=== PATIENT | female | born 1990 | race African-American/Black ===

== ENCOUNTER 2017-04-12 16:59 | Emergency (ER) | payer OTHER ==
[~2017-04-12] VITALS: Ht 167.6 cm; Wt 53.0 kg
[~2017-04-12 16:59] MED LIST: AUGM875T PO
[2017-04-12 17:12] VITALS: BP 109/70; PULSE 81; RESP 14; TEMP 98.7; O2SAT 97
[2017-04-12] MEDS ORDERED: ACETAMINOPHEN/HYDROcodone 325 MG/5 MG TAB PO ONE (17:45)
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
[2017-04-12] MEDS ORDERED: CYCL1TAB29 PO (20:15)
[2017-04-12] MEDS ORDERED: IBUP-232 PO (20:15)
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
[2017-04-12 20:47] VITALS: BP 101/67
== END 2017-04-12 20:49 | disposition home or self-care (01) ==
LOC: NEPD 16:59
DX: S00.81XA Abrasion of other part of head, initial encounter (principal); M79.605 Pain in left leg; S50.312A Abrasion of left elbow, initial encounter; S70.312A Abrasion, left thigh, initial encounter; V47.6XXA Car passenger injured in collision with fixed or stationary object in traffic accident, initial encounter; Y92.410 Unspecified street and highway as the place of occurrence of the external cause
CPT/HCPCS: 70450; 71020; 72125; 72170; 73080; 73564; 84703; 99285

== ENCOUNTER 2017-09-11 16:38 | Emergency (ER) | payer OTHER ==
[~2017-09-11 16:38] MED LIST changes: -AUGM875T PO; +CYCL1TAB29 PO; +IBUP-232 PO
[2017-09-11 16:43] VITALS: BP 99/55; PULSE 89; RESP 14; TEMP 98.1; O2SAT 100
[2017-09-11 18:01] LABS: BACTERIA, URINE RARE /hpf; BLOOD, URINE NEG (NEG); COMMENT (UR) CULT NOT INDICATED; CULTURE IF INDICATED CULT NOT INDICATED; GLUCOSE,URINE NEG (NEG); KETONE, URINE NEG (NEG); MUCUS URINE FEW /lpf (OCC); NITRITE,URINE NEG (NEG); PH, URINE 6.5 (5.0-8.5); SQUAMOUS EPITHELIAL CELL URINE 4 /hpf (0-5); URINE COLOR YELLOW (YELLW/STRAW)
[2017-09-11 18:25] LABS: AUTOMATED NEUTROPHIL # 3.5 TH/MM3 (1.8-7.7); BASOPHIL % 0.3 % (0.0-2.0); EOSINOPHIL % 0.3 % (0.0-4.0); HEMATOCRIT 41.1 % (35.0-46.0); HEMO FLAGS DIFF FINAL; LYMPH % 43.9 % (9.0-44.0); MEAN CELL VOLUME 93.6 FL (80.0-100.0); MEAN CORPUSCULAR HEMOGLOBIN 31.4 PG (27.0-34.0); MEAN CORPUSCULAR HGB CONC 33.6 % (32.0-36.0); MONO % 4.3 % (0.0-8.0); NEUT % 51.2 % (16.0-70.0); PLATELET COUNT 209 TH/MM3 (150-450); RED BLOOD COUNT 4.39 MIL/MM3 (4.00-5.30); RED CELL DISTRIBUTION WIDTH 13.8 % (11.6-17.2); WHITE BLOOD COUNT 6.8 TH/MM3 (4.0-11.0)
[2017-09-11 18:38] LABS: BICARBONATE 27.7 MEQ/L (21.0-32.0); POTASSIUM 3.7 MEQ/L (3.5-5.1)
== END 2017-09-11 19:08 | disposition left against medical advice (07) ==
LOC: NED 16:38
DX: R10.30 Lower abdominal pain, unspecified (principal); Z53.21 Procedure and treatment not carried out due to patient leaving prior to being seen by health care provider
CPT/HCPCS: 80048; 81001; 84702; 84703; 85025; 86850; 86900; 86901; 99281

== ENCOUNTER 2017-09-21 18:58 | Emergency (ER) | payer OTHER ==
[~2017-09-21] VITALS: Ht 167.6 cm; Wt 55.0 kg
[~2017-09-21 18:58] MED LIST changes: +CYCL10TA PO; -CYCL1TAB29 PO
[2017-09-21 19:03] VITALS: BP 120/72; PULSE 72; RESP 14; TEMP 98.2; O2SAT 99
[2017-09-21] MEDS ORDERED: PREN29TA PO (20:16)
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
[2017-09-21 20:57] LABS: AUTOMATED NEUTROPHIL # 3.3 TH/MM3 (1.8-7.7); BASOPHIL % 0.7 % (0.0-2.0); EOSINOPHIL % 0.7 % (0.0-4.0); HEMO FLAGS DIFF FINAL; LYMPH % 44.2 % (9.0-44.0); LYMPHOCYTE # 2.9 TH/MM3 (1.0-4.8); MEAN CELL VOLUME 93.8 FL (80.0-100.0); MEAN CORPUSCULAR HGB CONC 33.1 % (32.0-36.0); MONO % 4.4 % (0.0-8.0); PLATELET COUNT 201 TH/MM3 (150-450); RED BLOOD COUNT 4.37 MIL/MM3 (4.00-5.30); RED CELL DISTRIBUTION WIDTH 13.5 % (11.6-17.2); WHITE BLOOD COUNT 6.7 TH/MM3 (4.0-11.0)
[2017-09-21 21:12] LABS: BLOOD, URINE MOD (NEG); COMMENT (UR) CULT NOT INDICATED; CULTURE IF INDICATED CULT NOT INDICATED; GLUCOSE,URINE NEG (NEG); KETONE, URINE NEG (NEG); MUCUS URINE FEW /lpf (OCC); NITRITE,URINE NEG (NEG); SQUAMOUS EPITHELIAL CELL URINE 1 /hpf (0-5); URINE COLOR YELLOW (YELLW/STRAW)
[2017-09-21 21:24] LABS: ANION GAP 7 MEQ/L (5-15); AST (GOT) 16 U/L (15-37); BICARBONATE 24.8 MEQ/L (21.0-32.0); BLOOD UREA NITROGEN 11 MG/DL (7-18); CHLORIDE 106 MEQ/L (98-107); GLOMERULAR FILTRATION RATE 170 ML/MIN (>89); POTASSIUM 3.5 MEQ/L (3.5-5.1); SODIUM (NA) 138 MEQ/L (136-145)
[2017-09-21 21:25] LABS: ALT (GPT) 17 U/L (10-53)
[2017-09-21 21:54] LABS: ALKALINE PHOSPHATASE 58 U/L (45-117); TOTAL BILIRUBIN ADULT 0.4 MG/DL (0.2-1.0)
[2017-09-21 22:17] LABS: BETA HCG QUANT 18069 MIU/ML (0-5)
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
== END 2017-09-21 23:48 | disposition home or self-care (01) ==
LOC: NEPD 18:58
DX: O20.0 Threatened abortion (principal); Z3A.01 Less than 8 weeks gestation of pregnancy
CPT/HCPCS: 76700; 76817; 80053; 81001; 84702; 84703; 85025

== ENCOUNTER 2017-10-08 15:01 | Emergency (ER) | payer OTHER ==
[~2017-10-08] VITALS: Ht 167.6 cm; Wt 50.0 kg
[~2017-10-08 15:01] MED LIST changes: -CYCL10TA PO; -IBUP-232 PO; +PREN29TA PO
[2017-10-08 15:03] VITALS: BP 117/66; PULSE 69; RESP 16; TEMP 98; O2SAT 98
[2017-10-08] MEDS ORDERED: DOXY10TA PO (16:43)
--- NOTE | 2017-10-08 16:44 | PD ---
HPI Chief Complaint: Abdominal Pain Time Seen by Provider: 16:29 Travel History International Travel<30 days: No Contact w/Intl Traveler<30days: No Traveled to known affect area: No History of Present Illness HPI This is a 27-year-old female who presents to the emergency Department 8 weeks who has been having 9 days of nausea, queasiness, constant, moderate severity, not wanting to eat associated with loose stools. She says she has 4- 5 loose stools per day. She denies any fevers and denies any abdominal pain. She's had no vaginal bleeding. Normocytic with upper respiratory infections. She says she can't tell if this is infectious or if it's related to her . She's not been taking anything for nausea. She's not seen an OB/ MEDICAL LIBRARY ASSISTANT yet but does have an appointment scheduled. 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 PFSH Past Medical History Diabetes: No Diminished Hearing: No Immunizations Current: No Tetanus Vaccination: < 5 Years ?: LMP: 8 weeks : 4 Para: 3 Miscarriage: 0 : 0 Past Surgical History Section: Yes (3) Genitourinary Surgery: Yes ( in October) Gynecologic Surgery: Yes (3 C-SECTIONS) Social History Alcohol Use: No Tobacco Use: No Substance Use: No Allergies-Medications (Allergen,Severity, Reaction): Coded Allergies: No Known Allergies (Verified Adverse Reaction, Unknown, 10/08/17) Reported Meds & Prescriptions Reported Meds & Active Scripts Active Reported Plus Iron 29-1 mg ( Vit-Iron Carbonyl) 29 Mg Iron-1 Mg Tab 1 Tab PO DAILY Review of Systems Except as stated in HPI: all other systems reviewed are Neg Physical Exam Narrative GENERAL:Well appearing, no acute distress SKIN: Focused skin assessment warm and dry. HEAD: Atraumatic. Normocephalic. EYES: Pupils equal and round. No injection or drainage. ENT: Moist mucous membranes NECK: Trachea midline. CARDIOVASCULAR: Regular rate and rhythm. No murmur appreciated. RESPIRATORY: Clear to auscultation. Breath sounds equal bilaterally. GASTROINTESTINAL: Abdomen soft, non-tender, nondistended. MUSCULOSKELETAL: No obvious deformities. NEUROLOGICAL: Awake and alert. No obvious cranial nerve deficits. Moving all extremities. PSYCHIATRIC: Appropriate mood and affect; insight and judgment normal. Data Data Last Documented VS Vital Signs Date Time Temp Pulse Resp B/P (MAP) Pulse Ox O2 Delivery O2 Flow Rate FiO2 10/08/17 15:03 98.0 69 16 117/66 (83) 98 Room Air MDM Medical Decision Making Medical Screen Exam Complete: Yes Emergency Medical Condition: Yes Differential Diagnosis Hyperemesis gravidarum, nausea and , gastroenteritis Narrative Course This is a 27-year-old female who is 8 weeks who presents to the emergency department with nausea and loose stools. She is afebrile and very well-appearing. She has no abdominal pain. I doubt this is infectious in nature and I think it's just normal first trimester symptoms. I advised her to initiate Diclegis. I think she can return to work. We discussed eating small meals frequently. I think patient can be discharged and follow-up with her SLAT TWISTER as an outpatient. Diagnosis Primary Impression: Vomiting or nausea of Patient Instructions: General Instructions Additional Instructions: If you develop severe or worsening abdominal pain, fever>100.4, persistent vomiting or inability to eat or drink return to the emergency department immediately. Follow up with your SLAT TWISTER at your scheduled appointment. Eat small meals or snacks multiple times per day. Take Diclegis for nausea. Med/Other Pt SpecificInfo: Prescription(s) given Scripts Doxylamine-Pyridoxine (Diclegis) 10-10 Mg Tab 1 TAB PO DIRECTED, #20 Two tablets at bedtime on day 1 and 2; if symptoms persist, take 1 tablet in morning and 2 tablets at bedtime on day 3; if symptoms persist, may increase to 1 tablet in morning, 1 tablet mid-afternoon, and 2 tablets at bedtime on day 4 Prov: Vera Liu MD 10/08/17 Disposition: 01 DISCHARGE HOME Condition: Stable Vera Liu MD Oct 08, 2017 16:43
== END 2017-10-08 16:51 | disposition home or self-care (01) ==
LOC: NEPK 15:01
DX: O21.9 Vomiting of pregnancy, unspecified (principal); R11.0 Nausea; R19.7 Diarrhea, unspecified; Z3A.08 8 weeks gestation of pregnancy
CPT/HCPCS: 99283

== ENCOUNTER → 2017-11-08 | Outpatient (CLI) | payer OTHER ==
[~2017-11-08] MED LIST changes: +MACR100C2 PO
[2017-11-08 14:09] LABS: AUTOMATED NEUTROPHIL # 4.1 TH/MM3 (1.8-7.7); BASOPHIL % 0.2 % (0.0-2.0); EOSINOPHIL % 0.4 % (0.0-4.0); HEMOGLOBIN 12.3 GM/DL (11.6-15.3); LYMPH % 29.3 % (9.0-44.0); LYMPHOCYTE # 1.9 TH/MM3 (1.0-4.8); MEAN CELL VOLUME 93.4 FL (80.0-100.0); MEAN CORPUSCULAR HGB CONC 34.3 % (32.0-36.0); MEAN PLATELET VOLUME 8.5 FL (7.0-11.0); MONO % 4.8 % (0.0-8.0); MONOCYTE # 0.3 TH/MM3 (0-0.9); NEUT % 65.3 % (16.0-70.0); PLATELET COUNT 194 TH/MM3 (150-450); RED BLOOD COUNT 3.85 MIL/MM3 (4.00-5.30); RED CELL DISTRIBUTION WIDTH 13.4 % (11.6-17.2); WHITE BLOOD COUNT 6.3 TH/MM3 (4.0-11.0)
[2017-11-08 14:33] LABS: SICKLE CELL SCREEN NEG (NEG)
[2017-11-08 14:37] LABS: HEMOGLOBIN A1C 4.7 % (4.3-6.0)
[2017-11-09 12:02] LABS: HEPATITIS B SURFACE ANTIGEN NEGATIVE (NEGATIVE)
[2017-11-10 17:51] LABS: HIV 1/2 AG AB NON-REACTIVE (NONREACTIVE)
== END ==
LOC: CLAB 12:19
PROVIDERS: ATTEND Obstetrics & Gynecology
DX: Z11.59 Encounter for screening for other viral diseases (principal); Z13.89 Encounter for screening for other disorder; Z13.29 Encounter for screening for other suspected endocrine disorder; Z13.21 Encounter for screening for nutritional disorder; Z13.228 Encounter for screening for other metabolic disorders; Z20.820 Contact with and (suspected) exposure to varicella; Z13.0 Encounter for screening for diseases of the blood and blood-forming organs and certain disorders involving the immune mechanism; R82.99 Other abnormal findings in urine
CPT/HCPCS: 36415; 82951; 83036; 84443; 85025; 85660; 86592; 86762; 86787; 86850; 86900; 86901; 87086; 87340; 87389; 87535

== ENCOUNTER → 2017-12-10 | Outpatient (CLI) | payer OTHER ==
[2017-12-12 12:37] LABS: CALCULATED AGE AT EDD 26 years; GA USED IN RISK ESTIMATE Scan estimate; MATERNAL RACE BLACK Black; MATERNAL WEIGHT (LBS) 124 lbs; OTHER INFO Initial testing; RECOMMENDED FOLLOW UP None.
== END ==
LOC: CLAB 10:16
DX: Z87.59 Personal history of other complications of pregnancy, childbirth and the puerperium (principal); Z13.79 Encounter for other screening for genetic and chromosomal anomalies; Z3A.14 14 weeks gestation of pregnancy
CPT/HCPCS: 36415; 81511

== ENCOUNTER 2018-02-04 11:37 | Emergency (ER) | payer OTHER ==
--- NOTE | 2018-02-04 12:35 | PD ---
HPI Chief Complaint Decreased movement, abdominal pain, pelvic pressure Date Seen: Feb 04, 2018 Travel History International Travel<30 Days: No Contact w/Intl Traveler<30Days: No Known Affected Area: No History of Present Illness HPI Patient is a 27-year-old at 25/4 weeks gestation and presents to the [facility] with chief complaints of decreased movements, abdominal pain , and pelvic pressure. Patient states that in the last 2 days she has not felt her baby move much and she started having intermittent abdominal pain in her right lower abdomen that feels like stabbing pain. She is also experiencing pelvic pressure and has had pain and burning with urination in the last 2 days. Patient also states that she noticed very little spotting on her underwear yesterday. She last had sexual intercourse a week ago. She denies any recent trauma. She has not had any major issues during this . She denies fever or chills and has nausea that resumed 2 weeks ago but denies vomiting. Patient gets her care at [facility]. Weeks Gestation: 25 Para: 3 : 4 History Past Medical History Medical History: Denies Significant Hx Obstetric History Obstetric History Last 3 pregnancies with delivered by section at term Past Surgical History Surgical History: No Previous Surgery Family History Narrative Family History Mom has hypertension Maternal grandmother has diabetes No family history of asthma Social History Alcohol Use: No Tobacco Use: No Substance Abuse: No Allergies-Medications (Allergen,Severity, Reaction): Coded Allergies: No Known Allergies (Verified Adverse Reaction, Unknown, 10/16/17) Home Meds Active Scripts Terconazole Vaginal Cream (Terazol 7 Vaginal Cream) 0.4 % Cream, 1 APPL VAGINAL HS for Fungal Infection, #45 GM 0 Refills 1 applicatorful intravaginally x 7 nights Prov:Lindy Chavez MD 02/04/18 Nitrofurantoin Monohydrate Macrocrystals (Macrobid) 100 Mg Capsule, 100 MG PO BID for Infection for 7 Days, #14 CAP 0 Refills Prov:Misty Peña CNM [employer]OR OF [employer]ATEGY [employer]BILE 11/20/17 Reported Medications Vit-Iron Carbonyl ( Plus Iron 29-1 mg) 29 Mg Iron-1 Mg Tab, 1 TAB PO DAILY for Nutritional Supplement, #30 TAB 0 Refills 11/3/17 Review of Systems General / Constitutional: No: Fever, Chills Eyes: No: Blurred Vision HENT: No: Headaches Cardiovascular: No: Chest Pain or Discomfort, Edema Respiratory: No: Short of Breath Gastrointestinal: Nausea, Abdominal Pain, No: Vomiting Genitourinary: Dysuria Musculoskeletal: No: Weakness Skin: No Rash Neurologic: No: Headache Physical Exam Narrative GENERAL: Well-nourished, well-developed patient. SKIN: Warm and dry. HEAD: Normocephalic and atraumatic. EYES: No scleral icterus. No injection or drainage. ENT: No nasal drainage noted. Mucous membranes pink. Airway patent. NECK: Supple, trachea midline. No JVD. CARDIOVASCULAR: Regular rate and rhythm without murmurs, gallops, or rubs. RESPIRATORY: Breath sounds equal bilaterally. No accessory muscle use. ABDOMEN/GI: Abdomen soft, non-tender, bowel sounds present, no rebound, no guarding Gravid to 25 weeks size GENITOURINARY: External Genitalia: intact and normal in appearance Large amount of curd-like white discharge with specks of blood Cervix: Midposition Dilatation:0cm Effacement: 0% Station: -3 Presentation: [-] Membranes: Intact Uterine Contractions: None FHT's: Category: I Baseline: 147 Reactive: Yes, accels present Variability: Moderate Decels: None EXTREMITIES: No cyanosis or edema. BACK: Nontender without obvious deformity. No CVA tenderness. NEUROLOGICAL: Awake and alert. Motor and sensory grossly within normal limits. Five out of 5 muscle strength in all muscle groups. Normal speech. Data Data Vital Signs Reviewed: Yes Orders Orders Vital Signs (Adult) .ON ADMISSION (02/04/18 12:13) ^ Labor Status (02/04/18 12:13) Urinalysis - C+S If Indicated (02/04/18 12:13) ^ Non Stress Test (02/04/18 12:13) ^ Hydration (02/04/18 12:13) [facility] Medical Record Reviewed: Yes Interpretation(s) 27 year old at 25/4 weeks gestation presents with vaginal candidiasis and round ligament pain Plan 1. IUP - heart tones category 1, reassuring -Advised daily kick counts 2. Right Lower abdominal pain -Most likely round ligament pain -Discussed Tylenol, warm compresses, warm baths 3. Dysuria -Urinalysis shows large leukocyte esterase and yeast cells, culture not indicated -Dysuria and pelvic pressure most likely from candidal infection 4. Vaginal spotting -No signs of active bleeding on speculum exam -Wet prep sent due to a curd-like white discharge with red specks and was only positive for yeast cells -Terazol cream sent to pt's pharmacy Patient in stable condition, discussed plan for which patient expressed agreement and understanding. Patient to follow-up with OB provider as previously scheduled. Discussed with Dr. Montelongo Diagnosis Diagnosis: Primary Impression: Candidiasis of vagina Additional Impression: Round ligament pain Disposition: 01 DISCHARGE HOME Condition: Good Scripts Terconazole Vaginal Cream (Terazol 7 Vaginal Cream) 0.4 % Cream 1 APPL VAGINAL HS for Fungal Infection, #45 GM 0 Refills 1 applicatorful intravaginally x 7 nights Prov: Lindy Chavez MD 02/04/18 Patient Instructions: Movement (ED), General Instructions, Abdominal Pain in (ED), Nausea and Vomiting in (ED) Lindy Chavez MD Feb 04, 2018 12:34
[2018-02-04 13:41] LABS: BACTERIA, URINE OCC /hpf; BILIRUBIN, URINE NEG (NEG); BLOOD, URINE NEG (NEG); GLUCOSE,URINE NEG (NEG); KETONE, URINE NEG (NEG); MUCUS URINE FEW /lpf (OCC); NITRITE,URINE NEG (NEG); SQUAMOUS EPITHELIAL CELL URINE 4 /hpf (0-5); URINE COLOR YELLOW (YELLW/STRAW); URINE LEUKOCYTE ESTERASE LARGE (NEG)
[2018-02-04] MEDS ORDERED: TERC.4%V VAGINAL (13:53)
== END 2018-02-04 15:00 | disposition home or self-care (01) ==
LOC: HOBED 11:37
DX: O98.812 Other maternal infectious and parasitic diseases complicating pregnancy, second trimester (principal); B37.3 Candidiasis of vulva and vagina; R10.2 Pelvic and perineal pain; Z3A.25 25 weeks gestation of pregnancy
CPT/HCPCS: 81001; 87210; 99283

== ENCOUNTER → 2018-02-13 | Outpatient (CLI) | payer OTHER ==
[~2018-02-13] MED LIST changes: +TERC.4%V VAGINAL
[2018-02-13 12:06] LABS: HEMATOCRIT 35.2 % (35.0-46.0); HEMOGLOBIN 11.7 GM/DL (11.6-15.3)
[2018-02-14 15:24] LABS: HEMOGLOBIN A1C 4.5 % (4.3-6.0)
== END ==
LOC: CLAB 09:59
PROVIDERS: ATTEND Advanced Practice Midwife
DX: Z34.92 Encounter for supervision of normal pregnancy, unspecified, second trimester (principal)
CPT/HCPCS: 36415; 82951; 83036; 85014; 85018; 86703; 87340

== ENCOUNTER 2018-05-10 08:49 | Inpatient (IN) | payer OTHER ==
[2018-05-10] VITALS (11 sets, daily range): BP systolic 89–116; BP diastolic 51–63; PULSE 52–74; RESP 17–18; TEMP 96.7–98.4; O2SAT 98–99
[~2018-05-10] VITALS: Ht 167.6 cm; Wt 78.0 kg
[2018-05-10] MEDS ORDERED: LACTATED RINGER'S 1000 ML INJ 1,000 ML IV ONE (09:02)
--- NOTE | 2018-05-10 09:04 | HHI.HP ---
HPI Chief Complaint Scheduled Date Seen: May 10, 2018 Time Seen: 09:15 Travel History International Travel<30 Days: No Contact w/Intl Traveler<30Days: No Known Affected Area: No History of Present Illness HPI Patient is a 28-year-old at 39/1. Patient has had a uncomplicated followed [facility] and is GBS negative. She has had 3 prior sections without complications and is scheduled for a today. She denies any regular contractions, gush of fluid, vaginal bleeding or decreased movement. She has no complaints at this time and has not had any fever, chills, dysuria or any signs of active infection. History Past Medical History Medical History: Denies Significant Hx Obstetric History Obstetric History 3 prior deliveries were all by section at term Initial was due to malpresentation Past Surgical History Narrative Surgical 3 prior C-sections Family History Narrative Family History Maternal history of hyperthyroidism and hypertension Paternal history of hypertension Social History Narrative Social History Lives at home with her 3 children Denies any tobacco, alcohol, illicit drug use Allergies-Medications (Allergen,Severity, Reaction): Coded Allergies: No Known Allergies (Verified Adverse Reaction, Unknown, 10/16/17) Home Meds Reported Medications Vit-Iron Carbonyl ( Plus Iron 29-1 mg) 29 Mg Iron-1 Mg Tab, 1 TAB PO DAILY for Nutritional Supplement, #30 TAB 0 Refills 09/21/17 Discontinued Scripts Terconazole Vaginal Cream (Terazol 7 Vaginal Cream) 0.4 % Cream, 1 APPL VAGINAL HS for Fungal Infection, #45 GM 0 Refills 1 applicatorful intravaginally x 7 nights Prov:Lindy Chavez MD R2 02/04/18 Nitrofurantoin Monohydrate Macrocrystals (Macrobid) 100 Mg Capsule, 100 MG PO BID for Infection for 7 Days, #14 CAP 0 Refills Prov:Misty Peña CNM [facility] 11/20/17 Review of Systems Except as stated in HPI: all other systems reviewed are Neg Physical Exam Narrative GENERAL: Well-nourished, well-developed patient. SKIN: Warm and dry. HEAD: Normocephalic and atraumatic. EYES: No scleral icterus. No injection or drainage. ENT: No nasal drainage noted. Mucous membranes pink. Airway patent. NECK: Supple, trachea midline. No JVD. CARDIOVASCULAR: Regular rate and rhythm without murmurs, gallops, or rubs. RESPIRATORY: Breath sounds equal bilaterally. No accessory muscle use. ABDOMEN/GI: Abdomen soft, non-tender, bowel sounds present, no rebound, no guarding Gravid to 39 weeks size GENITOURINARY: External Genitalia: intact and normal in appearance Uterine Contractions: Every 2-3 minutes FHT's: Category: 1 Baseline: 140 Reactive: Absent Variability: Moderate Decels: Absent EXTREMITIES: No cyanosis or edema. BACK: Nontender without obvious deformity. No CVA tenderness. NEUROLOGICAL: Awake and alert. Motor and sensory grossly within normal limits. Five out of 5 muscle strength in all muscle groups. Normal speech. Caprini VTE Risk Assessment Caprini VTE Risk Assessment: Mod/High Risk (score >= 2) Caprini Risk Assessment Model Point Value = 1 Point Value = 2 Point Value = 3 Point Value = 5 Age 41-60 Minor surgery BMI > 25 kg/m2 Swollen legs Varicose veins or History of unexplained or recurrent spontaneous Oral contraceptives or hormone replacement Sepsis (< 1 month) Serious lung disease, including pneumonia (< 1 month) Abnormal pulmonary function Acute myocardial infarction Congestive heart failure (< 1 month) History of inflammatory bowel disease Medical patient at bed rest Age 61-74 Arthroscopic surgery Major open surgery (> 45 min) Laparoscopic surgery (> 45 min) Malignancy Confined to bed (> 72 hours) Immobilizing plaster cast Central venous access Age >= 75 History of VTE Family history of VTE Factor V Leiden Prothrombin [id number] Lupus anticoagulant Anticardiolipin antibodies Elevated serum homocysteine Heparin-induced thrombocytopenia Other congenital or acquired thrombophilia Stroke (< 1 month) Elective arthroplasty Hip, pelvis, or leg fracture Acute spinal cord injury (< 1 month) Prophylaxis Regimen Total Risk Factor Score Risk Level Prophylaxis Regimen 0-1 Low Early ambulation 2 Moderate Order ONE of the following: *Sequential Compression Device (SCD) *Heparin 5000 units SQ BID 3-4 Higher Order ONE of the following medications: *Heparin 5000 units SQ TID *Enoxaparin/Lovenox 40 mg SQ daily (WT < 150 kg, CrCl > 30 mL/min) *Enoxaparin/Lovenox 30 mg SQ daily (WT < 150 kg, CrCl > 10-29 mL/min) *Enoxaparin/Lovenox 30 mg SQ BID (WT < 150 kg, CrCl > 30 mL/min) AND/OR *Sequential Compression Device (SCD) 5 or more Highest Order ONE of the following medications: *Heparin 5000 units SQ TID (Preferred with Epidurals) *Enoxaparin/Lovenox 40 mg SQ daily (WT < 150 kg, CrCl > 30 mL/min) *Enoxaparin/Lovenox 30 mg SQ daily (WT < 150 kg, CrCl > 10-29 mL/min) *Enoxaparin/Lovenox 30 mg SQ BID (WT < 150 kg, CrCl > 30 mL/min) AND *Sequential Compression Device (SCD) Assessment/Plan Assessment and Plan Patient is a 28-year-old at 39/1 being admitted for a scheduled repeat C- section with no desire for a tubal ligation. PCS 3. Uncomplicated to this point. GBS negative -Admit with routine preop orders. Scheduled for 1030 this morning -Category 1 tracing, reassuring. Contractions on the monitor every 2-5 minutes -No known drug allergies Clay Matute MD R1 May 10, 2018 09:04
[2018-05-10 09:25] LABS: AUTOMATED NEUTROPHIL # 4.8 TH/MM3 (1.8-7.7); BASOPHIL % 0.2 % (0.0-2.0); EOSINOPHIL % 0.7 % (0.0-4.0); HEMATOCRIT 35.1 % (35.0-46.0); HEMOGLOBIN 11.4 GM/DL (11.6-15.3); LYMPHOCYTE # 1.7 TH/MM3 (1.0-4.8); MEAN CELL VOLUME 84.4 FL (80.0-100.0); MEAN CORPUSCULAR HEMOGLOBIN 27.5 PG (27.0-34.0); MEAN CORPUSCULAR HGB CONC 32.6 % (32.0-36.0); MEAN PLATELET VOLUME 9.8 FL (7.0-11.0); MONO % 7.1 % (0.0-8.0); MONOCYTE # 0.5 TH/MM3 (0-0.9); PLATELET COUNT 182 TH/MM3 (150-450); RED BLOOD COUNT 4.16 MIL/MM3 (4.00-5.30); RED CELL DISTRIBUTION WIDTH 15.3 % (11.6-17.2); WHITE BLOOD COUNT 7.1 TH/MM3 (4.0-11.0)
[2018-05-10] MEDS ORDERED: LACTATED RINGER'S 1000 ML INJ 1,000 ML IV SCH ×2 (09:32→17:04)
[2018-05-10 09:37] LABS: BACTERIA, URINE OCC /hpf; BILIRUBIN, URINE NEG (NEG); BLOOD, URINE NEG (NEG); GLUCOSE,URINE NEG (NEG); KETONE, URINE NEG (NEG); MUCUS URINE FEW /lpf (OCC); NITRITE,URINE NEG (NEG); SQUAMOUS EPITHELIAL CELL URINE 11 /hpf (0-5); URINE COLOR YELLOW (YELLW/STRAW); URINE LEUKOCYTE ESTERASE TRACE (NEG)
[2018-05-10] MEDS ORDERED: ceFAZolin 2 GM PREMIX 50 ML IV SCH (10:15)
[2018-05-10] MEDS ORDERED: ACETAMINOPHEN 1000 MG/100 ML 100 ML IV ONE ×2 (10:23→12:30)
[2018-05-10] MEDS ORDERED: MORPHINE SULFATE PF 5 MG/10 ML VIAL ONE (10:23)
[2018-05-10] MEDS ORDERED: CITRIC ACID-SODIUM CITRATE LIQ 30 ML UDC PO SCH (10:45)
[2018-05-10] MEDS ORDERED: diphenhydrAMINE HCL 50 MG/ML VIAL ONE (12:01)
[2018-05-10] MEDS ORDERED: ACETAMINOPHEN 325 MG TAB PO PRN (12:15)
[2018-05-10] MEDS ORDERED: SIMETHICONE 80 MG CHEWABLE TAB PO PRN (12:15)
[2018-05-10] MEDS ORDERED: OXYTOCIN 30 UNITS-500ML PREMIX 500 ML IV ONE (12:15)
[2018-05-10] MEDS ORDERED: oxyCODONE/ACETAMINOPHEN 5 MG/325 MG TAB PO PRN (12:15)
[2018-05-10] MEDS ORDERED: ZOLPIDEM TARTRATE 5 MG TAB PO PRN (12:15)
[2018-05-10] MEDS ORDERED: SODIUM CHLORIDE 0.9% FLUSH 10 ML FLUSH IV FLUSH PRN (12:15)
[2018-05-10] MEDS ORDERED: EPIDURAL-DIPHENHYDRAMINE HCL 50 MG/ML VIAL IV PUSH PRN (15:00)
[2018-05-10] MEDS ORDERED: EPIDURAL-DIPHENHYDRAMINE HCL 50 MG CAP PO PRN (15:00)
[2018-05-10] MEDS ORDERED: EPIDURAL-NO SYSTEMIC NARCOTICS PRN (15:00)
[2018-05-10] MEDS ORDERED: EPIDURAL-NALOXONE HCL 0.4 MG/ML AMP IV PUSH PRN (15:00)
[2018-05-10] MEDS ORDERED: EPIDURAL-DO NOT ADMINISTER ANTICOAGULANTS PRN (15:00)
--- NOTE | 2018-05-10 15:30 | PD.OB.DELI ---
Procedure Note Section Procedure Pre Op Diagnosis: (1) History of 3 sections Post Op Diagnosis: (1) History of 3 sections Performed by Jody Gastelum MD Procedure: Repeat Low Transverse Sec Indication for delivery: Desired elective repeat Informed consent obtained: For procedure Confirmed correct: Time-out taken Anesthesia: Spinal Medication prior to procedure: As documented in eMAR Urinary catheter: Inserted using sterile technique, To dependent drainage Sterile preparation: Duraprep Position: Supine with wedge to left side Operative Features Skin Incision: Pfannenstiel Uterine Incision: Low transverse w/knife / blunt ext Membranes Ruptured: Artificially Presentation: Occiput anterior Delivery date: May 10, 2016 Delivery time: 11:07 Delivery of : Assisted (with vacuum) Infant: Female One Minute : 8 Five Minute : 9 Weight: 3200 Status of : Viable Placenta delivered: Intact Medications: Antibiotics Estimated blood loss: 800 ml Procedure tolerated: Well Maternal Condition: Stable Condition: Stable Procedure in detail After informed consent was obtained, she consented. Her previous incision is incised in usual fashion. The underlying layer of fascia is reached using the Bovie. The fascia is incised in the midline and the incision is extended laterally. Gloria clamps were used to elevate the fascia superiorly and inferiorly and the rectus muscles are dissected off. The peritoneum was identified and entered sharply. The bladder blade was inserted. The vesicouterine peritoneum was difficult to identify, the lower uterine segment was nearly paper thin. A transverse uterus incision was in the lower uterine segment well above the bladder. The incision was made over the lower uterine segment to layer just exposing membranes; these were ruptured for clear fluid. The uterine incision was extended laterally digitally. The infant vertex is then delivered atraumatically through the incision followed by the remainder of the 's body. The cord is doubly clamped and cut. The is passed off to the waiting nursery team. Once this was done, attention is then turned back to the uterine field. The placenta is removed manually intact with three-vessel cord. Dense adhesions were noted on the anterior uterine surface to the anterior abdominal wall. The adhesions were taken down sharply and suture ligated. The uterus was exteriorized, cleared of all clot and debris. The uterine incision was repaired using 1 Chromic suture in a running locked fashion. Additional sutures of O chromic were placed to achieve hemostasis. Tubes and ovaries were inspected and noted to be normal on the left. The right fallopian tube was dilated in a manner suspicious for hydrosalpinx. Once this was done attention was then turned back to the uterine incision which remained hemostatic. The uterus was returned to the abdominal cavity. The gutters were cleared of all clot and debris. Interceed was placed over the incision. The fascia was re-approximated using 1 Vicryl suture in a running fashion. The subcutaneous fat is irrigated and made hemostatic and re- approximated using 3-0 Chromic suture. The skin is closed using 3-0 Monocryl suture. Jody Gastelum MD May 10, 2018 15:30
[2018-05-10] MEDS ORDERED: ONDANSETRON ODT 4 MG TAB PO PRN (15:45)
[2018-05-10] MEDS ORDERED: KETOROLAC TROMETHAMINE 30 MG/ML (IVP) VIAL IV PUSH ONE (15:45)
[2018-05-10] MEDS: diphenhydrAMINE HCL 50 MG CAP PO PRN (16:33)
[2018-05-10] MEDS ORDERED: OXYTOCIN 30 UNITS-500ML PREMIX 500 ML IV PRN (17:15)
[2018-05-10] MEDS: SODIUM CHLORIDE 0.9% FLUSH 10 ML FLUSH IV FLUSH SCH (21:00)
[2018-05-10] MEDS: IBUPROFEN 600 MG TAB PO PRN (23:20)
[2018-05-10] MEDS: oxyCODONE/ACETAMINOPHEN 5 MG/325 MG TAB PO PRN (23:20)
[2018-05-10] MEDS: DOCUSATE SODIUM 50 MG/SENNA 8.6 MG TAB PO PRN (23:20)
[2018-05-11 02:00] VITALS: BP 112/72; PULSE 80; RESP 17; TEMP 99.4
[2018-05-11] MEDS: oxyCODONE/ACETAMINOPHEN 5 MG/325 MG TAB PO PRN ×4 (04:30→22:33)
[2018-05-11] MEDS: IBUPROFEN 600 MG TAB PO PRN ×4 (04:31→22:33)
[2018-05-11 05:26] LABS: AUTOMATED NEUTROPHIL # 9.2 TH/MM3 (1.8-7.7); BASOPHIL % 0.1 % (0.0-2.0); HEMATOCRIT 27.3 % (35.0-46.0); LYMPH % 12.1 % (9.0-44.0); LYMPHOCYTE # 1.4 TH/MM3 (1.0-4.8); MEAN CELL VOLUME 83.9 FL (80.0-100.0); MEAN CORPUSCULAR HEMOGLOBIN 27.5 PG (27.0-34.0); MEAN CORPUSCULAR HGB CONC 32.8 % (32.0-36.0); MEAN PLATELET VOLUME 9.8 FL (7.0-11.0); MONOCYTE # 1.1 TH/MM3 (0-0.9); NEUT % 78.8 % (16.0-70.0); PLATELET COUNT 167 TH/MM3 (150-450); RED BLOOD COUNT 3.26 MIL/MM3 (4.00-5.30); RED CELL DISTRIBUTION WIDTH 15.2 % (11.6-17.2); WHITE BLOOD COUNT 11.6 TH/MM3 (4.0-11.0)
[2018-05-11 06:05] VITALS: TEMP 99.1
[2018-05-11] MEDS: diphenhydrAMINE HCL 50 MG CAP PO PRN (07:45)
--- NOTE | 2018-05-11 08:48 | HHI.OB ---
Subjective Post Operative Day: 1 Remarks Patient is a 28-year-old delivered at 39 weeks and 1 days. Patient is postop day 1 after scheduled repeat . Patient's pain is well- controlled. Patient reports eating and drinking without any nausea or vomiting. Patient reports minimal bleeding. Patient has passed gas but no bowel movements. Patient is walking without lower extremity pain or shortness of breath. Patient reports desire for contraception with oral contraceptive pills and breast-feeding. (Alberto Banks MD R2) Remarks Patient seen and evaluated with resident under direct supervision, agree with assessment and plan. (Pavel Montes MD) Objective Vitals/I&O Vital Signs Date Time Temp Pulse Resp B/P (MAP) Pulse Ox O2 Delivery O2 Flow Rate FiO2 05/11/18 06:05 99.1 05/11/18 02:00 17 05/11/18 02:00 99.4 80 112/72 (85) 05/10/18 22:00 98.4 05/10/18 22:00 70 17 108/51 (70) 05/10/18 15:15 98.0 05/10/18 14:38 61 18 89/56 (67) 98 05/10/18 14:38 96.7 05/10/18 13:40 97.6 05/10/18 13:32 52 18 91/54 (66) 99 05/10/18 13:00 62 18 99 05/10/18 13:00 91/52 (65) 05/10/18 12:45 68 18 99 05/10/18 12:45 94/53 (67) 05/10/18 12:30 63 18 97/54 (68) 99 05/10/18 12:21 64 18 98/53 (68) 99 05/10/18 12:00 74 99/58 (72) 05/10/18 12:00 97.7 18 05/10/18 12:00 98 05/10/18 12:00 74 99/58 (72) 05/10/18 09:30 98.2 18 05/10/18 09:30 70 116/63 (80) (Alberto Banks MD R2) Result Diagram: 05/11/18 0507 Objective Remarks GENERAL: Well-nourished, well-developed patient. CARDIOVASCULAR: Regular rate and rhythm without murmurs, gallops, or rubs. RESPIRATORY: Breath sounds equal bilaterally. No accessory muscle use. ABDOMEN/GI: Abdomen soft, non-tender, bowel sounds present. Incision: Clean, dry and intact. Fundus: Firm, non-tender at umbilicus. GENITOURINARY: Light to moderate bleeding. EXTREMITIES: No cyanosis or edema, non-tender, without signs of DVT. Medications and IVs Current Medications Medications (Trade) Dose Ordered Sig/Tyra Route Start Time Stop Time Status Last Admin Lactated Ringer's 1,000 ml @ 100 mls/hr Q10H IV 05/10/18 17:04 05/11/18 13:03 05/10/18 20:40 Oxytocin 500 ml @ 100 mls/hr UNSCH X1 PRN IV 05/10/18 17:15 05/11/18 17:14 (NS Flush) 2 ml BID IV FLUSH 05/10/18 21:00 (NS Flush) 2 ml UNSCH PRN IV FLUSH 05/10/18 12:15 (Mylicon Chew) 80 mg QID PRN PO 05/10/18 12:15 (Tylenol) 650 mg Q6H PRN PO 05/10/18 12:15 (Motrin) 600 mg Q6H PRN PO 05/10/18 12:15 05/11/18 04:31 (Percocet 5-325 Mg) 1 tab Q4H PRN PO 05/10/18 12:15 (Percocet 5-325 Mg) 2 tab Q4H PRN PO 05/10/18 12:15 05/11/18 04:30 (Sallie-Colace) 2 tab Q12H PRN PO 05/10/18 12:15 05/10/18 23:20 (Ambien) 5 mg HS PRN PO 05/10/18 12:15 (M-M-R Ii Inj) 0.5 ml ONCE ONCE SQ 05/11/18 16:00 05/11/18 16:01 (Boostrix Inj) 0.5 ml ONCE ONCE IM 05/11/18 16:00 05/11/18 16:01 ([facility]) NO SYSTEMIC NARCOTICS TO BE GIVEN FO... UNSCH PRN .XX 05/10/18 15:00 05/11/18 14:59 (Narcan Inj) 0.4 mg UNSCH PRN IV PUSH 05/10/18 15:00 05/11/18 14:59 (Benadryl Inj) 25 mg Q6H PRN IV PUSH 05/10/18 15:00 05/11/18 14:59 ([facility]) ALL NURSING DEPARTMENTS UNSCH PRN .XX 05/10/18 15:00 05/11/18 14:59 (Benadryl) 50 mg Q4HR PRN PO 05/10/18 15:45 05/11/18 07:45 (Zofran Odt) 4 mg Q4H PRN PO 05/10/18 15:45 (Alberto Banks MD R2) Assessment/Plan Problem List: (1) S/P ICD Codes: Z98.891 - History of uterine scar from previous surgery (2) History of 3 sections ICD Codes: Z87.59 - Personal history of other complications of , childbirth and the puerperium Assessment and Plan Patient is a 28-year-old delivered at 39 weeks and 1 days. Patient is postop day 1 after scheduled repeat . Patient was counseled to do 6 weeks of pelvic rest. Patient was counseled to follow up in 1 week for an incision check and again in 6 weeks. Patient requested follow-up and contraception. --AF VSS --Continue routine care --Motrin and Percocet when necessary for pain --Encourage OOB --Pelvic rest for 6 weeks will need follow-up appointment at that time. --Contraception: Oral contraceptive pill on discharge --Anticipate discharge tomorrow or the next day d/w Dr. Gastelum (Alberto Banks MD R2) Alberto Banks MD R2 May 11, 2018 08:48 Pavel Montes MD May 12, 2018 09:46
[2018-05-11] MEDS ORDERED: ORTH0.35 PO (09:01)
[2018-05-11] MEDS: DOCUSATE SODIUM 50 MG/SENNA 8.6 MG TAB PO PRN ×2 (10:36→22:33)
[2018-05-11] MEDS ORDERED: DIPHTH/TETANUS/ACEL PERTUSSIS (BOOSTER) 0.5 ML VIAL/PFS IM ONE (16:00)
[2018-05-11] MEDS ORDERED: MEASLES, MUMPS, RUBELLA VACCINE 0.5 ML VIAL SQ ONE (16:00)
[2018-05-11 16:30] VITALS: BP 110/56; PULSE 78; RESP 18; TEMP 97.9
[2018-05-11 20:00] VITALS: BP 117/60; PULSE 88; RESP 17; TEMP 98.1
[2018-05-11] MEDS: SODIUM CHLORIDE 0.9% FLUSH 10 ML FLUSH IV FLUSH SCH (21:00)
[2018-05-12] MEDS: IBUPROFEN 600 MG TAB PO PRN ×2 (04:56→10:53)
[2018-05-12] MEDS: oxyCODONE/ACETAMINOPHEN 5 MG/325 MG TAB PO PRN ×2 (04:56→10:54)
[2018-05-12 08:00] VITALS: BP 108/62; PULSE 79; RESP 16; TEMP 97.9
--- NOTE | 2018-05-12 08:03 | HHI.OB ---
Subjective Post Operative Day: 2 Remarks Patient is a 28-year-old delivered at 39 weeks and 1 days. Patient is postop day 2 after scheduled repeat . Patient's pain is well- controlled. Patient reports eating and drinking without any nausea or vomiting. Patient reports minimal bleeding. Patient has passed gas and bowel movements. Patient is walking without lower extremity pain or shortness of breath. Patient reports desire for contraception with OCPs and breast-feeding. (Alberto Banks MD R2) Remarks Patient seen and evaluated with resident under direct supervision, agree with assessment and plan. (Pavel Montes MD) Objective Vitals/I&O Vital Signs Date Time Temp Pulse Resp B/P (MAP) Pulse Ox O2 Delivery O2 Flow Rate FiO2 05/11/18 20:00 98.1 17 05/11/18 20:00 88 117/60 (79) 05/11/18 16:30 97.9 78 18 110/56 (74) (Alberto Banks MD R2) Result Diagram: 05/11/18 0505 Objective Remarks GENERAL: Well-nourished, well-developed patient. CARDIOVASCULAR: Regular rate and rhythm without murmurs, gallops, or rubs. RESPIRATORY: Breath sounds equal bilaterally. No accessory muscle use. ABDOMEN/GI: Abdomen soft, non-tender, bowel sounds present. Incision: Some dried blood at the edges of the incision but otherwise clean, dry and intact. Fundus: Firm, non-tender at umbilicus. GENITOURINARY: Light to moderate bleeding. EXTREMITIES: No cyanosis or edema, non-tender, without signs of DVT. Medications and IVs Current Medications Medications (Trade) Dose Ordered Sig/Tyra Route Start Time Stop Time Status Last Admin (NS Flush) 2 ml BID IV FLUSH 05/10/18 21:00 (NS Flush) 2 ml UNSCH PRN IV FLUSH 05/10/18 12:15 (Mylicon Chew) 80 mg QID PRN PO 05/10/18 12:15 05/11/18 19:41 (Tylenol) 650 mg Q6H PRN PO 05/10/18 12:15 (Motrin) 600 mg Q6H PRN PO 05/10/18 12:15 05/12/18 04:56 (Percocet 5-325 Mg) 1 tab Q4H PRN PO 05/10/18 12:15 (Percocet 5-325 Mg) 2 tab Q4H PRN PO 05/10/18 12:15 05/12/18 04:56 (Sallie-Colace) 2 tab Q12H PRN PO 05/10/18 12:15 05/11/18 22:33 (Ambien) 5 mg HS PRN PO 05/10/18 12:15 (Benadryl) 50 mg Q4HR PRN PO 05/10/18 15:45 05/11/18 07:45 (Zofran Odt) 4 mg Q4H PRN PO 05/10/18 15:45 (Alberto Banks MD R2) Assessment/Plan Problem List: (1) S/P ICD Codes: Z98.891 - History of uterine scar from previous surgery (2) History of 3 sections ICD Codes: Z87.59 - Personal history of other complications of , childbirth and the puerperium Assessment and Plan Patient is a 28-year-old delivered at 39 weeks and 1 days. Patient is postop day 2 after scheduled repeat . Patient was counseled to do 6 weeks of pelvic rest. Patient was counseled to follow up in 1 week for an incision check and again in 6 weeks. Patient requested follow-up and contraception. --AF VSS --Continue routine care --Motrin and Percocet when necessary for pain --Encourage OOB --Pelvic rest for 6 weeks will need follow-up appointment at that time. --Contraception: Oral contraceptive pill on discharge --Anticipate discharge tomorrow or the next day d/w Dr. Montes Discharge Planning likely today (Alberto Banks MD R2) Alberto Banks MD R2 May 12, 2018 08:03 Pavel Montes MD May 12, 2018 09:45
[2018-05-12] MEDS ORDERED: IBUP-232 PO (08:04)
[2018-05-12] MEDS ORDERED: OXYC1TAB63 PO ×2 (08:04→08:10)
--- NOTE | 2018-05-12 08:04 | HHI.DCPOC ---
Discharge Care Plan Diagnosis: (1) S/P (2) History of 3 sections Report Symptoms to Your Doctor -Temperature above 100.5 degrees -Redness, of incision or excessive or foul smelling drainage -Unusual pain or calf pain -Increased vaginal bleeding -Painful or difficulty urinating -Feelings of extreme sadness or anxiety after 2 weeks Goals to Promote Your Health * To prevent worsening of your condition and complications, please follow-up with your doctor in 1 week for an incision check and again in 6 weeks for general checkup. Directions to Meet Your Goals Take your medications as prescribed Follow your dietary instruction Follow activity as directed Ensure plenty of rest for recovery Drink fluids for hydration Keep your appointments as scheduled Take your immunizations and boosters as scheduled If your symptoms worsen call your PCP, if no PCP go to Urgent Care Center or Emergency Room Smoking is Dangerous to Your Health. Avoid second hand smoke Call the 24-hour crisis hotline for domestic abuse at Alberto Banks MD R2 May 12, 2018 08:04 Pavel Montes MD May 12, 2018 09:45
[2018-05-12] MEDS: DOCUSATE SODIUM 50 MG/SENNA 8.6 MG TAB PO PRN (10:53)
[2018-05-14] MEDS ORDERED: CEPH-460 PO (04:14)
== END 2018-05-12 14:25 | disposition home or self-care (01) | DRG 766 ==
LOC: H2EB 08:49 → H1EA 13:59
PROVIDERS: ADMIT Obstetrics & Gynecology; ATTEND Obstetrics & Gynecology
PROC: 10D00Z1 Extraction of Products of Conception, Low, Open Approach (ICD-10-PCS; principal; 2018-05-10)
DX: O34.211 Maternal care for low transverse scar from previous cesarean delivery (principal); Z37.0 Single live birth; Z3A.39 39 weeks gestation of pregnancy
CPT/HCPCS: 80307; 81001; 85025; 86850; 86900; 86901; 90715; J0131; J0690; J1200; J1885; J2274; J7120; Q0163

== ENCOUNTER 2018-05-14 16:21 | Inpatient (IN) ==
--- NOTE | 2018-05-20 10:04 | MP ---
cc: Nahid Fuentes MD DATE OF OPERATION: 05/17/2018 PREOPERATIVE DIAGNOSIS: Possible bladder versus ureteral injury. POSTOPERATIVE DIAGNOSIS: Bladder injury. SURGEON: Nahid Fuentes MD PROCEDURE PERFORMED: 1. Cystoscopy. 2. Bilateral retrograde pyelogram. 3. Interpretation of radiographic images. 4. Cystogram. 5. Urethral catheter placement. INTERPRETATION OF RADIOGRAPHIC IMAGES: 1. Total fluoroscopy time approximately 2 minutes. 2. Bilateral retrograde pyelogram identified normal bilateral ureters. No evidence of extravasation or hydronephrosis. 3. Evidence of extravasation of urine upon cystogram. PERTINENT FINDINGS: 1. Bladder with some bruising noted in the posterior bladder wall and anterior bladder wall. 2. Anterior bladder wall defect noted at the left anterior bladder wall approximately 3 cm from the bladder neck with surrounding erythema. There is also bruising noted throughout the entire posterior bladder wall and anterior bladder wall. Defect measuring approximately 1 cm in size. 3. A 20-Divehi Smith catheter inserted. INDICATIONS FOR PROCEDURE: This is a 28-year-old female status post with concern for possible bladder versus ureteral injury due to a rising creatinine postoperatively with increasing abdominal pain. CT scan identified free fluid within the abdomen; however, source unknown. Therefore, Urology was consulted for evaluation for possible ureteral/bladder injury. PROCEDURE IN DETAIL: After proper informed consent was obtained, the patient was taken to the operating room and placed supine on the operating table. Bilateral SCDS were in place. The patient was placed under anesthesia. The patient was placed in lithotomy position and prepped and draped in standard surgical fashion. After timeout was completed, the rigid cystoscope was inserted through urethra and bladder. Urethral mucosa was within normal limits without abnormalities or lesions identified. Upon entering the bladder, bilateral ureteral orifices were identified. The bladder was inspected and complete inspection of the bladder wall identified an area of the bladder wall defect noted in the left anterior bladder wall measuring approximately 1 cm in largest diameter and located approximately 2 cm from the bladder neck on the left anterior bladder wall. Surrounding erythema noted with bruising noted throughout the entire posterior bladder wall. At this point, the ureteral orifices were identified and cannulated using the 5-Divehi open-ended ureteral catheter. Retrograde pyelogram was completed which identified normal caliber ureters bilaterally with no evidence of hydronephrosis. No evidence of extravasation on ureteral catheterization, retrograde pyelograms. At this point, a cystogram was then performed on the table, which identified some evidence of extravasation at the anterior, posterior bladder wall. Therefore, a 20-Divehi urethral catheter was successfully placed through the urethra into the bladder. As there were no other injuries, a Smith catheter will heal this bladder injury. The patient was awakened from the anesthesia and taken to post-anesthesia care unit in stable condition. The patient tolerated the procedure well without complications. DISPOSITION: The patient discharged home with Smith catheter to remain in place for at least 2 weeks with cystogram prior. Nahid Fuentes MD SMVal/TL , 02:11 PM , 03:32 PM
== END 2018-05-18 13:30 | disposition home or self-care (01) ==
LOC: H1EA 16:22
PROVIDERS: ADMIT Obstetrics & Gynecology; ATTEND Obstetrics & Gynecology